=== PATIENT | female | born 1955 | race Caucasian/White ===

== ENCOUNTER 2022-07-12 12:54 | Outpatient (CLI) | payer MEDICARE, MEDICAID | END 2022-07-12 12:55 | disposition home or self-care (01) | LOC: NAV RAD 12:54 | PROVIDERS: ATTEND Family Medicine | DX: S89.92XS Unspecified injury of left lower leg, sequela (principal); M17.12 Unilateral primary osteoarthritis, left knee ==

== ENCOUNTER 2023-11-22 10:04 | Outpatient (CLI) | payer MEDICARE, MEDICAID ==
[2023-11-22 10:50] LABS: Bilirubin Negative (Negative); Blood, Urine Negative (Negative); Clarity Clear (Clear); Glucose, Urine (Dipstick) Negative (Negative); Ketone, Urine Negative (Negative); Leukocyte Trace (Negative); Nitrite Positive (Negative); Protein, Urine (Dipstick) Negative (Neg-Trace); Urobilinogen 0.2 mg/dL (Less than 2); pH, Urine 5.5 (5.0-9.0)
[2023-11-22 11:07] LABS: ALT (SGPT) 41 U/L (8-55); AST (SGOT) 39 U/L (5-34); Albumin 4.7 g/dL (3.4-4.8); Alkaline Phosphatase 84 U/L (40-110); Anion Gap 18 mmol/L (10-20); BUN (Urea Nitrogen) 10 mg/dL (9.8-20.1); Bilirubin, Total 0.9 mg/dL (0.2-1.2); Calc. Creatinine Clearance 0 mL/min (70-130); Calcium 9.7 mg/dL (7.8-10.44); Carbon Dioxide 22 mmol/L (23-31); Chloride 103 mmol/L (98-107); Estimated GFR 79; Globulin 2.4 g/dL (2.4-3.5); Glucose 173 mg/dL (80-115); Potassium 4.5 mmol/L (3.5-5.1); Protein, Total 7.1 g/dL (5.8-8.1); Sodium 138 mmol/L (136-145)
[2023-11-22 11:26] LABS: Thyroid Stimulating Hormone 1.4758 uIU/mL (0.35-4.94)
[2023-11-22 12:04] LABS: RBC/HPF None Seen HPF (0-3); WBC/HPF 0-3 HPF (0-3)
[2023-11-22 12:05] LABS: Bacteria/HPF 2+ HPF (None Seen); Squamous Epithelial 0-3 HPF (0-3)
[2023-11-22 18:16] LABS: Free T4 (Free Thyroxine) 1.27 ng/dL (0.70-1.48)
[2023-11-22 18:17] LABS: Vitamin B12 Greater than 2000 pg/mL (211-911)
== END 2023-11-22 10:05 | disposition home or self-care (01) ==
LOC: NAV RAD 10:04
PROVIDERS: ATTEND Family Medicine
DX: R53.83 Other fatigue (principal); R42 Dizziness and giddiness; R06.00 Dyspnea, unspecified
CPT/HCPCS: 36415; 71046; 80053; 81001; 82607; 83880; 84439; 84443; 84480